=== PATIENT | male | born 1995 | race Caucasian/White ===

== ENCOUNTER 2020-04-26 16:24 | Outpatient (CLI) | payer OTHER, SELFPAY | END 2020-04-26 16:25 | disposition home or self-care (01) | LOC: SPT 16:25 | PROVIDERS: Family Provider Pediatrics Adolescent Medicine; PCP Speech-Language Pathologist; Visit Provider Podiatrist Foot & Ankle Surgery | DX: Z46.89 Encounter for fitting and adjustment of other specified devices (principal); S93.491D Sprain of other ligament of right ankle, subsequent encounter; X58.XXXD Exposure to other specified factors, subsequent encounter | CPT/HCPCS: 73610; 97760; L1902; L4361 ==

== ENCOUNTER → 2021-08-04 11:30 | Outpatient (BNVA) | payer OTHER, SELFPAY | PROVIDERS: Family Provider Pediatrics Adolescent Medicine; PCP Speech-Language Pathologist; Visit Provider Nurse Practitioner Family | DX: J02.9 Acute pharyngitis, unspecified (principal) | CPT/HCPCS: 87081; 87880 ==